=== PATIENT | male | born 1945 | race Caucasian/White ===

== ENCOUNTER → 2024-01-21 | Outpatient (CLI) | payer MEDICARE ==
[~2024-01-21] MED LIST: ASPI-1005 PO; ATOR10 PO; METO25TA6 PO; MIRT-93 PO
== END | disposition home or self-care (01) ==
LOC: LAB 11:50
PROVIDERS: ATTEND Internal Medicine Cardiovascular Disease
DX: I10 Essential (primary) hypertension (principal); R01.1 Cardiac murmur, unspecified; Z79.899 Other long term (current) drug therapy
CPT/HCPCS: 36415; 82306; 84443

== ENCOUNTER → 2024-03-23 | Outpatient (CLI) | payer OTHER ==
--- NOTE | 2024-03-24 08:57 | HMCSR ---
APPROVED REPORT EXAM: Two-dimensional and M-mode echocardiogram with Doppler and color Doppler. INDICATION Murmur RISK FACTORS Hypertension 2D Dimensions RVDd3.7 cmLVEF(%)55.0 (>50%)LVED Vol(simp.)113.0 mL IVSd1.1 (0.7-1.1cm)FS(%)29 %LVES Vol(simp.)48.0 mL LVDd4.8 (3.8-5.6cm)Ao Root(2D)3.6 (2.0-3.7cm)LVEF(%, simp.)57 % PWd1.0 (0.7-1.1cm)LVOT diam2.1 (1.8-2.4cm)LA ESV INDEX (BP)27.93 mL/m2 LVDs3.4 (2.5-4.0cm) Aortic Valve AoV Vmax1.9 m/Mina Peak GR14.2 mmHgLVOT Vmax1.0 m/s AoV VTI0.5 mAo Mean GR8.0 mmHgLVOT VTI0.27 m MEDARDO (VMAX)2.0 cm2Al P1/2T654 msAVA (VTI) 2.0 cm2 Mitral Valve MV E Zrmi630.5 cm/sDECEL Ygbo691 ms MV A Nzeg059.0 cm/sP 1/2 T65 ms E/A ratio0.9MVA (PHT)3.4 cm2 MR Max PG98 mmHg TDI E/E' Brlsni81.3E/E' Yttecka76.0 Pulmonary Valve PV Vmax1.1 m/sPV VTI0.28 mPV Mean GR3 mmHg PV Peak GR5.3 mmHgPI End Katelyn. Dereck 0.8 cm/s Tricuspid Valve TR Vmax2.6 m/sRAP (EST) 8 tvAlRIDB98.5 mmHg TR Peak GR26.5 mmHg Left Ventricle Left ventricular cavity size is normal. There is normal LV segmental wall motion. There is borderline left ventricular hypertrophy. LVEF is 55-60%. Stage II, diastolic dysfunction. Right Ventricle The right ventricle is normal size. The right ventricular systolic function is normal. Atria The left atrium size is normal. The right atrium size is normal. Aortic Valve Aortic valve is trileaflet. Aortic valve is moderately calcified. Trace aortic regurgitation. There i s mild valvular aortic stenosis.Calculated aortic valve area is 2.0 cm2 with maximum pressure gradien t of 14.2 mmHg and mean pressure gradient of 8 mmHg. Mitral Valve Mitral posterior annular calcification is mild. Mitral valve leaflets are sclerotic but open well. Mi tral regurgitation is trace. There is no mitral valve stenosis. Tricuspid Valve The tricuspid valve leaflets appear normal. There is trace to mild tricuspid regurgitation. Right sumi tricular systolic pressure is estimated at 30-40 mmHg. Pulmonic Valve The pulmonic valve leaflets are thin and pliable; valve motion is normal. There is trace pulmonic timothy vular regurgitation. Great Vessels The aortic root is normal in size. IVC is not well visualized. Pericardium No pericardial effusion. Conclusion LVEF is 55-60%. Aortic valve is trileaflet. Aortic valve is moderately calcified. There is mild valvular aortic stenosis.Calculated aortic valve area is 2.0 cm2 with maximum pressure gradient of 14.2 mmHg and mean pressure gradient of 8 mmHg. Mitral regurgitation is trace.
== END | disposition home or self-care (01) ==
LOC: SHCH 03-02 10:39
PROVIDERS: ATTEND Internal Medicine Cardiovascular Disease
DX: I08.3 Combined rheumatic disorders of mitral, aortic and tricuspid valves (principal); R01.1 Cardiac murmur, unspecified; I10 Essential (primary) hypertension
CPT/HCPCS: 93306